=== PATIENT | female | born 1945 | race Caucasian/White ===

== ENCOUNTER → 2017-12-31 | Day surgery (SDC) | payer OTHER ==
[~2017-12-31] VITALS: Ht 162.6 cm; Wt 75.3 kg
--- NOTE | 2017-12-31 14:40 | Operative Report ---
Operative/Inv Procedure Report Surgery Date: 12/31/17 Name of Procedure: Cystocele repair with mesh, rectocele repair with a cell mesh, and urethral sling, cystoscopy Pre-Operative Diagnosis: Cystocele grade 3, rectocele grade 2-3, stress incontinence Post-Operative Diagnosis: Same Estimated Blood Loss: 250cc Surgeon/Portfolio Manager: Bia Vaca MD Anesthesia: laryngeal mask airway Implants: Vaginal mesh Complications: None Condition: Stable Operative Indication: Cystocele and rectocele and stress urinary incontinence Operative/Procedure Note Note: 72-year-old female with a history of pelvic organ prolapse and it was very bothersome. She has tried using a pessary but it was uncomfortable and kept repositioning. She was very interestedin surgical repair. She was given the risks benefits and alternatives of the prolapse repair with mesh in the anterior and posterior mcmullen and urethral sling for stress incontinence. Literature was given and all questions were answered in the office as well as in the holding area with present. Patient was taken to the operating room and placed on the operating table in the supine position. LMA was placed by anesthesia without difficulty. IV antibiotics were infused. She was placed in the dorsolithotomy position and prepped and draped in a standard sterile fashion after shaving the genitalia. A Mecosta retractor was placed with 6 stay hooks. De Souza catheter was placed and 10 cc was placed into the balloon port. One Percent lidocaine with epinephrine was infiltrated into the anterior vaginal wall from the bladder neck to the apex of the vagina. An incision was made in the same distance and the vaginal flaps were created taking care not to injure the bladder. Once the entire cystocele was dissected free the Coloplast Restoril mesh was then placed with 4 Prolene sutures with the thin Capio device. One in the sacrospinous ligament on the right side followed by the left side and one each in the arcus tendineus at the level of the bladder neck on the right and left side. They were each in excellent placement and the mesh was secured and tied down after 2-0 Vicryl sutures were placed at the bladder neck and at the apex. This nicely reduce the cystocele and the enterocele. There area was copiously irrigated with bacitracin irrigation. Methylene blue had been given at the start of the case to check for patency of the ureteral orifices at a later time. The ureteral orifices were able to be identified and efflux was seen from both ureters with cystoscopy. The anterior vaginal wall was then closed with 2-0 Vicryl running suture locking every third suture. Attention was then turned to the sling portion of the case. One percent lidocaine with epinephrine was infiltrated into the anterior vaginal wall beneath the urethra. Incision was made 2 inches beneath the urethra. Vaginal flaps are created taking care not to injure the urethra. The UltraSling kit was then opened and the trochars provided was used to place the urethral sling in a flat orientation. The sling was seen to be in good position and the tightening Prolene suture was cut after it was tightened. The area was copious irrigated with bacitracin irrigation. The anterior vaginal wall was then closed with a running locking 3-0 Vicryl suture. Attention was then turned to the rectocele portion of the case. Mecosta retractor was replaced to allow for excellent visualization of the vaginal vault. Allis clamps are placed at the posterior fourchette. 1% lidocaine with epinephrine was infiltrated into the posterior vaginal wall. Incision was made at the posterior fourchette in a lateral fashion. Metzenbaum scissors was then used to carefully dissect the rectocele from the posterior vaginal wall. The incision was carried all the way up to the cervical stump. The posterior wall was then dissected free from the rectocele taking care not to injure the rectum. A cell mesh had been soaking for 20 minutes prior to this and this was then used for this repair. 2-0 Vicryl interrupted sutures were placed along the entire length of the rectocele within strong fascial tissue on the right and left side. These were tied down until a cell mesh was placed between the sutures and secured proximally and distally. The sutures were then sequentially tied down from proximal to distal orientation. This nicely reduced the rectocele. Area was grossly irrigated bacitracin irrigation and then the posterior wall was closed with interrupted 2-0 Vicryl sutures. 2 inch vaginal packing impregnated with bacitracin ointment was placed in the vaginal vault. Sponge and needle count were correct at the end of the case. Patient tolerated the procedure well. Findings: No mesh in the bladder, urethra or vaginal fornices. Excellent bilateral ureteral efflux. Discharge Disposition: PACU
== END ==
LOC: STS 03:01
DX: N39.3 Stress incontinence (female) (male) (principal); N81.10 Cystocele, unspecified; N81.6 Rectocele; R39.15 Urgency of urination
CPT/HCPCS: C1771; C1781; J0131; J0690; J1885; J2250; J2405; Q9968